=== PATIENT | male | born 1945 | race Caucasian/White ===

== ENCOUNTER 2018-08-21 05:36 | Day surgery (SDC) | payer MEDICARE, BC ==
[2018-08-21] MEDS ORDERED: POLYMYXIN/BACITRACIN 1L IRRIG (06:45)
[2018-08-21] MEDS ORDERED: GELATIN SIZE 100 SPONGE (06:45)
[2018-08-21] MEDS ORDERED: THROMBIN 5000 UNIT VIAL (06:45)
[2018-08-21] MEDS ORDERED: POVIDONE IODINE 10% 28.4 GM OINT (06:45)
[2018-08-21] MEDS ORDERED: SOD CHLORIDE 0.9% 1,000 ML IV (07:05)
[2018-08-21] MEDS ORDERED: MIDAZOLAM 1 MG/ML 2 ML INJ (07:13)
[2018-08-21] MEDS ORDERED: FENTAnyl 50 MCG/ML VIAL (07:13)
[2018-08-21] MEDS ORDERED: ROPIVACAINE 0.5 % 30 ML VIAL (07:19)
[2018-08-21] MEDS ORDERED: OXYCODONE/ACETAMINOPHEN (5/325) TAB PO ×2 (07:30)
[2018-08-21] MEDS ORDERED: morphine 2 MG INJ IV (07:30)
[2018-08-21] MEDS: POLYMYXIN/BACITRACIN 1L IRRIG IRR (08:20)
[2018-08-21] MEDS ORDERED: METHYLENE BLUE 1% 10 ML INJ (08:42)
[2018-08-21] MEDS: ROPIVACAINE 0.5 % 30 ML VIAL (10:20)
[2018-08-21] MEDS ORDERED: ROCURONIUM 50 MG INJ (10:25)
[2018-08-21] MEDS ORDERED: LIDOCAINE 2% (SDV) 5 ML INJ (10:25)
[2018-08-21] MEDS ORDERED: ETOMIDATE 20 MG INJ (10:25)
[2018-08-21] MEDS ORDERED: CEFAZOLIN 1 GM INJ (10:26)
[2018-08-21] MEDS ORDERED: ONDANSETRON 4 MG INJ (10:27)
[2018-08-21] MEDS ORDERED: DIPHENHYDRAMINE 50 MG INJ IV (11:00)
[2018-08-21] MEDS ORDERED: NALOXONE (0.4 MG/ML) INJ IV (11:00)
[2018-08-21] MEDS ORDERED: FENTAnyl 50 MCG/ML VIAL IV (11:00)
[2018-08-21] MEDS ORDERED: HYDROmorphONE 1 MG/5 ML IV SYRINGE IV ×2 (11:00)
[2018-08-21] MEDS: ONDANSETRON 4 MG INJ IV (11:11)
[2018-08-21] MEDS: MEPERIDINE 25 MG INJ IV (11:11)
== END 2018-08-21 14:00 | disposition home or self-care (01) ==
LOC: SDS 05:36
DX: M13.871 Other specified arthritis, right ankle and foot (principal); I10 Essential (primary) hypertension; E78.5 Hyperlipidemia, unspecified
CPT/HCPCS: 28750; 73630